=== PATIENT | female | born 1985 | race Caucasian/White ===

== ENCOUNTER 2016-11-28 18:41 | Emergency (ER) | payer OTHER ==
[~2016-11-28] VITALS: Ht 167.6 cm; Wt 100.5 kg
[2016-11-28 19:16] LABS: MCH 25.9 PG (29.0-34.0); MCHC 32.3 G/DL (30.0-36.0); MCV 80.2 FL (83-99); MEAN PLAT.VOLUME 9.8 uM^3 (9.5-12.4); PLATELET COUNT 306 K/uL (156-360); RBC DIS.WIDTH-CV 14.1 % (11.8-14.6); RBC DIS.WIDTH-SD 41.1 % (39-53); RED BLOOD COUNT 4.86 M/uL (3.80-5.20); WHITE BLOOD COUNT 5.3 K/uL (4.1-10.2)
[2016-11-28 19:28] LABS: CHLORIDE 108 mEq/L (99-109); POTASSIUM 3.3 mEq/L (3.7-5.4); SODIUM 141 mEq/L (136-147)
[2016-11-28 19:30] LABS: GLUCOSE 83 mg/dL (70-99)
[2016-11-28 19:31] LABS: ANION GAP 11 MEQ/L (2-14)
[2016-11-28 19:35] LABS: GFR ESTIMATE (CALCULATED) > 59 mL/min/; UREA NITROGEN (BUN) 15 mg/dL (9-23)
[2016-11-28 21:23] LABS: ADD MIUA? YES; BILIRUBIN NEGATIVE; BLOOD MODERATE; COLOR AMBER ((YELLOW)); GLUCOSE (STRIP) NEGATIVE; KETONES 5; LEUKOCYTES TRACE; NITRITE NEGATIVE; PROTEIN (STRIP) 100; SPECIFIC GRAVITY 1.034 (1.000-1.030); UROBILINOGEN 0.2 MG/DL (0.2-1.0)
[2016-11-28 21:31] LABS: BACTERIA NONE SEEN /HPF; EPITHELIAL CELLS 2+ /HPF; MUCUS 4+ /LPF; RED BLOOD CELLS NONE SEEN /HPF (0-5); UCUL ADDED? NO; WHITE BLOOD CELLS NONE SEEN /HPF (0-5)
[2016-11-28 21:36] LABS: INTERNAL CONTROL VALID? YES
[2016-11-28 22:45] LABS: TOTAL BILIRUBIN 0.2 mg/dL (0.0-1.0)
[2016-11-28 22:46] LABS: ALKALINE PHOSPHATASE 103 IU/L (3-129)
[2016-11-28 22:49] LABS: DIRECT BILIRUBIN 0.1 mg/dL (0.0-0.3)
[2016-11-28 22:50] LABS: LIPASE 61 U/L (1.0-51.0)
[2016-11-28] MEDS ORDERED: CIPRO500 MG PO (23:52)
[2016-11-28] MEDS ORDERED: COLACE100 MG PO (23:52)
[2016-11-29 00:27] VITALS: BP 112/69
== END 2016-11-29 00:29 | disposition home or self-care (01) ==
LOC: RME 18:41 → EME 18:41 → RME 11-29 00:29
DX: K59.00 Constipation, unspecified (principal); N39.0 Urinary tract infection, site not specified; E03.9 Hypothyroidism, unspecified; Z87.442 Personal history of urinary calculi
CPT/HCPCS: 74176; 80048; 80076; 81003; 83690; 84703; 85027; 99281; 99284; J0744; J1885; J7030

== ENCOUNTER 2017-05-12 05:22 | Day surgery (SDC) | payer OTHER ==
[~2017-05-12] VITALS: Ht 167.6 cm; Wt 100.0 kg
[~2017-05-12 05:22] MED LIST: CIPRO500 MG PO; COLACE100 MG PO; ELAVIL25 MG PO; IMITREX100 MG PO; LEVO-T50 MCG PO; XANAX0.5 MG PO
[2017-05-12 07:20] VITALS: BP 117/74
[2017-05-12] MEDS ORDERED: IBUPROFEN800 MG PO (09:02)
[2017-05-12] MEDS ORDERED: ENDOCET 5-3251 EACH PO (09:02)
[2017-05-12 11:12] VITALS: BP 109/68
[2017-05-12 12:12] VITALS: BP 117/73
[2017-05-12 14:00] VITALS: BP 103/56
== END 2017-05-12 14:00 | disposition home or self-care (01) ==
LOC: SDC 05:22
DX: N92.0 Excessive and frequent menstruation with regular cycle (principal); N94.6 Dysmenorrhea, unspecified; N80.0 Endometriosis of uterus; N83.11 Corpus luteum cyst of right ovary; N99.4 Postprocedural pelvic peritoneal adhesions; N13.5 Crossing vessel and stricture of ureter without hydronephrosis; N83.511 Torsion of right ovary and ovarian pedicle; G43.109 Migraine with aura, not intractable, without status migrainosus
CPT/HCPCS: 88307; J0330; J1100; J1170; J1580; J2405; J2710; J3010; J7050; S0030

== ENCOUNTER 2017-05-19 20:47 | Emergency (ER) | payer OTHER ==
[~2017-05-19] VITALS: Ht 170.2 cm; Wt 100.8 kg
[~2017-05-19 20:47] MED LIST changes: +ENDOCET 5-3251 EACH PO; +IBUPROFEN800 MG PO
[2017-05-19 21:19] LABS: HEMATOCRIT 38.4 % (36.0-46.0); MCH 24.9 PG (29.0-34.0); MCV 80.5 FL (83-99); MEAN PLAT.VOLUME 10.8 uM^3 (9.5-12.4); PLATELET COUNT 287 K/uL (156-360); RBC DIS.WIDTH-CV 14.8 % (11.8-14.6); RBC DIS.WIDTH-SD 43.3 % (39-53); RED BLOOD COUNT 4.77 M/uL (3.80-5.20); WHITE BLOOD COUNT 12.7 K/uL (4.1-10.2)
[2017-05-19 21:32] LABS: CHLORIDE 106 mEq/L (99-109); POTASSIUM 3.8 mEq/L (3.7-5.4); SODIUM 140 mEq/L (136-147)
[2017-05-19 21:35] LABS: GLUCOSE 123 mg/dL (70-99)
[2017-05-19 21:36] LABS: ANION GAP 11 MEQ/L (2-14); TOTAL BILIRUBIN 0.2 mg/dL (0.0-1.0)
[2017-05-19 21:38] LABS: ALKALINE PHOSPHATASE 96 IU/L (3-129); GFR ESTIMATE (CALCULATED) > 59 mL/min/
[2017-05-19 21:39] LABS: UREA NITROGEN (BUN) 14 mg/dL (9-23)
[2017-05-19 21:42] LABS: LIPASE 46 U/L (1.0-51.0)
[2017-05-19 21:48] LABS: QUANTITATIVE HCG < 4.0 MIU/ML
[2017-05-19 23:49] LABS: ADD MIUA? YES; BILIRUBIN NEGATIVE; BLOOD LARGE; COLOR YELLOW ((YELLOW)); GLUCOSE (STRIP) NEGATIVE; KETONES NEGATIVE; LEUKOCYTES LARGE; NITRITE NEGATIVE; PROTEIN (STRIP) 30; UROBILINOGEN 0.2 MG/DL (0.2-1.0)
[2017-05-19 23:58] LABS: BACTERIA NONE SEEN /HPF; EPITHELIAL CELLS 2+ /HPF; MUCUS TRACE /LPF; UCUL ADDED? YES; WHITE BLOOD CELLS 30-40 /HPF (0-5)
[2017-05-20] MEDS ORDERED: MIRALAX17 GM PO (01:28)
[2017-05-20] MEDS ORDERED: BACTRIM,SEPT1 TABLET PO (01:30)
[2017-05-20 02:13] VITALS: BP 107/75
== END 2017-05-20 02:14 | disposition home or self-care (01) ==
LOC: EME 20:47
DX: N39.0 Urinary tract infection, site not specified (principal); G89.18 Other acute postprocedural pain; R10.30 Lower abdominal pain, unspecified; N83.202 Unspecified ovarian cyst, left side; Z90.710 Acquired absence of both cervix and uterus; E03.9 Hypothyroidism, unspecified
CPT/HCPCS: 74177; 80053; 81003; 83690; 84702; 85027; 87086; 99281; 99285; J2405; J3010; J7030

== ENCOUNTER 2017-08-04 12:31 | Day surgery (SDC) | payer OTHER ==
[~2017-08-04] VITALS: Ht 167.6 cm; Wt 100.0 kg
[~2017-08-04 12:31] MED LIST changes: +BACTRIM,SEPT1 TABLET PO; +MIRALAX17 GM PO
[2017-08-04] MEDS ORDERED: KLONOPIN0.5 M1 PO (12:48)
[2017-08-04 12:51] VITALS: BP 120/79
[2017-08-04 13:10] LABS: BASOPHIL COUNT 0.1 K/uL (0-0.1); EOSINOPHIL (%) 3.4 % (0-5); EOSINOPHIL COUNT 0.3 K/uL (0-0.3); HEMATOCRIT 35.2 % (36.0-46.0); IMMATURE GRANULOCYTE (%) 0.4 % (0.0-0.7); INSTRUMENT ABS NEUTROPHIL CT 3.6 K/uL; LYMPHOCYTE COUNT 2.8 K/uL (1.0-2.8); MCHC 32.1 G/DL (30.0-36.0); MCV 81.1 FL (83-99); MEAN PLAT.VOLUME 9.4 uM^3 (9.5-12.4); MONOCYTE (%) 8.1 % (3-12); MONOCYTE COUNT 0.6 K/uL (0-0.8); NEUTROPHIL (%) 49.1 % (45-76); NEUTROPHIL COUNT 3.6 K/uL (1.8-6.4); PLATELET COUNT 279 K/uL (156-360); RBC DIS.WIDTH-CV 14.5 % (11.8-14.6); RED BLOOD COUNT 4.34 M/uL (3.80-5.20); WHITE BLOOD COUNT 7.3 K/uL (4.1-10.2)
[2017-08-04] MEDS ORDERED: IBUPROFEN800 MG PO (15:37)
[2017-08-04 16:10] VITALS: BP 113/66
[2017-08-04 16:40] VITALS: BP 131/70
== END 2017-08-04 16:49 | disposition home or self-care (01) ==
LOC: SDC 12:31
PROVIDERS: Obstetrics & Gynecology
PROC: 0UBG7ZZ Excision of Vagina, Via Natural or Artificial Opening (ICD-10-PCS; principal; 2017-08-04)
DX: N84.2 Polyp of vagina (principal); N93.9 Abnormal uterine and vaginal bleeding, unspecified; E03.9 Hypothyroidism, unspecified; F41.9 Anxiety disorder, unspecified; Z88.0 Allergy status to penicillin
CPT/HCPCS: 85025; 88305; J0131; J1100; J1170; J1885; J2250; J3010

== ENCOUNTER 2017-08-13 20:22 | Emergency (ER) | payer OTHER ==
[~2017-08-13] VITALS: Ht 167.6 cm; Wt 100.0 kg
[~2017-08-13 20:22] MED LIST changes: +KLONOPIN0.5 M1 PO
[2017-08-13] MEDS ORDERED: ULTRAM50 MG PO (21:45)
[2017-08-13] MEDS ORDERED: MOTRIN600 MG PO (21:45)
[2017-08-13 22:17] VITALS: BP 130/79
== END 2017-08-13 22:18 | disposition home or self-care (01) ==
LOC: EME 20:22
PROC: 2W3QX1Z Immobilization of Right Lower Leg using Splint (ICD-10-PCS; principal; 2017-08-13)
DX: S93.601A Unspecified sprain of right foot, initial encounter (principal); E03.9 Hypothyroidism, unspecified; Z90.710 Acquired absence of both cervix and uterus; Z88.0 Allergy status to penicillin; Z88.1 Allergy status to other antibiotic agents; Z91.041 Radiographic dye allergy status; W18.2XXA Fall in (into) shower or empty bathtub, initial encounter; Y93.E1 Activity, personal bathing and showering
CPT/HCPCS: 73630; 99281; 99284

== ENCOUNTER 2017-08-30 17:06 | Emergency (ER) | payer OTHER ==
[~2017-08-30] VITALS: Ht 167.6 cm; Wt 107.2 kg
[~2017-08-30 17:06] MED LIST changes: +MOTRIN600 MG PO; +ULTRAM50 MG PO
[2017-08-30 19:26] LABS: ADD MIUA? YES; BILIRUBIN NEGATIVE; BLOOD NEGATIVE; COLOR YELLOW ((YELLOW)); GLUCOSE (STRIP) NEGATIVE; KETONES NEGATIVE; LEUKOCYTES NEGATIVE; NITRITE NEGATIVE; PROTEIN (STRIP) NEGATIVE; SPECIFIC GRAVITY 1.023 (1.000-1.030); UROBILINOGEN 0.2 MG/DL (0.2-1.0)
[2017-08-30 19:30] LABS: BACTERIA NONE SEEN /HPF; CALCIUM OXALATE CRYSTALS 1+ /HPF; EPITHELIAL CELLS 1+ /HPF; MUCUS TRACE /LPF; RED BLOOD CELLS 0-5 /HPF (0-5); WHITE BLOOD CELLS 0-5 /HPF (0-5)
[2017-08-30] MEDS ORDERED: MOTRIN800 MG PO (20:42)
[2017-08-30] MEDS ORDERED: REGLAN10 MG PO (20:42)
[2017-08-30] MEDS ORDERED: FIORICET 50-301 EAC1 PO (20:42)
[2017-08-30 21:01] VITALS: BP 133/103
== END 2017-08-30 21:02 | disposition home or self-care (01) ==
LOC: EME 17:06
PROVIDERS: Physician Assistant
DX: G43.909 Migraine, unspecified, not intractable, without status migrainosus (principal); E03.9 Hypothyroidism, unspecified; Z90.710 Acquired absence of both cervix and uterus; Z88.1 Allergy status to other antibiotic agents; Z88.0 Allergy status to penicillin
CPT/HCPCS: 81003; 99281; 99285; J1200; J1885; J2765; J7030

== ENCOUNTER 2017-10-12 11:20 | Emergency (ER) | payer OTHER ==
[~2017-10-12] VITALS: Ht 167.6 cm; Wt 111.6 kg
[~2017-10-12 11:20] MED LIST changes: +FIORICET 50-301 EAC1 PO; +MOTRIN800 MG PO; +REGLAN10 MG PO
[2017-10-12 12:10] LABS: HEMATOCRIT 37.3 % (36.0-46.0); HEMOGLOBIN 12.3 G/DL (11.9-15.5); MCV 78.9 FL (83-99); PLATELET COUNT 369 K/uL (156-360); RBC DIS.WIDTH-CV 15.3 % (11.8-14.6); RBC DIS.WIDTH-SD 43.8 % (39-53); RED BLOOD COUNT 4.73 M/uL (3.80-5.20); WHITE BLOOD COUNT 8.2 K/uL (4.1-10.2)
[2017-10-12 12:20] LABS: ALBUMIN 4.4 g/dL (3.2-4.8)
[2017-10-12 12:21] LABS: CHLORIDE 103 mEq/L (99-109); SODIUM 135 mEq/L (136-147)
[2017-10-12 12:23] LABS: GLUCOSE 107 mg/dL (70-99); TOTAL PROTEIN 8.2 g/dL (6.4-8.3)
[2017-10-12 12:25] LABS: TOTAL BILIRUBIN 0.3 mg/dL (0.0-1.0)
[2017-10-12 12:26] LABS: ALKALINE PHOSPHATASE 138 IU/L (3-129)
[2017-10-12 12:27] LABS: CREATININE 0.9 mg/dL (0.6-1.3); GFR ESTIMATE (CALCULATED) > 59 mL/min/
[2017-10-12 12:28] LABS: AST (GOT) 34 IU/L (2-34); UREA NITROGEN (BUN) 9 mg/dL (9-23)
[2017-10-12 12:29] LABS: ALT (GPT) 56 IU/L (3-49)
[2017-10-12 12:30] LABS: LIPASE 32 U/L (1.0-51.0)
[2017-10-12] MEDS ORDERED: PERCOCET 5/31 TABLET PO (15:50)
[2017-10-12] MEDS ORDERED: CEFTIN250 MG PO (15:50)
[2017-10-12 16:05] LABS: APPEARANCE CLEAR ((CLEAR)); BILIRUBIN NEGATIVE; BLOOD MODERATE; COLOR STRAW ((YELLOW)); GLUCOSE (STRIP) NEGATIVE; KETONES NEGATIVE; LEUKOCYTES NEGATIVE; NITRITE NEGATIVE; PROTEIN (STRIP) NEGATIVE; SPECIFIC GRAVITY 1.033 (1.000-1.030); UROBILINOGEN 0.2 MG/DL (0.2-1.0)
[2017-10-12 16:15] LABS: BACTERIA NONE SEEN /HPF; EPITHELIAL CELLS RARE /HPF; MUCUS NONE SEEN /LPF; RED BLOOD CELLS 0-5 /HPF (0-5); UCUL ADDED? NO; WHITE BLOOD CELLS 0-5 /HPF (0-5)
[2017-10-12 16:18] VITALS: BP 117/77
== END 2017-10-12 16:32 | disposition home or self-care (01) ==
LOC: EME 11:20
PROVIDERS: Physician Assistant
DX: G89.18 Other acute postprocedural pain (principal); L03.90 Cellulitis, unspecified; E03.9 Hypothyroidism, unspecified; Z98.890 Other specified postprocedural states; Z90.710 Acquired absence of both cervix and uterus; Z90.49 Acquired absence of other specified parts of digestive tract; Z88.0 Allergy status to penicillin; Z88.1 Allergy status to other antibiotic agents; Z91.041 Radiographic dye allergy status
CPT/HCPCS: 74177; 80053; 81003; 83605; 83690; 85027; 87040; 99281; 99285; J0696; J1200; J2930; J3010; J7030; S0028

== ENCOUNTER 2017-10-29 12:21 | Emergency (ER) | payer OTHER ==
[~2017-10-29] VITALS: Ht 167.6 cm; Wt 110.6 kg
[~2017-10-29 12:21] MED LIST changes: +CEFTIN250 MG PO; +PERCOCET 5/31 TABLET PO
[2017-10-29 13:21] LABS: HEMATOCRIT 37.4 % (36.0-46.0); HEMOGLOBIN 12.2 G/DL (11.9-15.5); MCH 26.3 PG (29.0-34.0); MCHC 32.6 G/DL (30.0-36.0); MCV 80.6 FL (83-99); PLATELET COUNT 311 K/uL (156-360); RBC DIS.WIDTH-SD 46.9 % (39-53); RED BLOOD COUNT 4.64 M/uL (3.80-5.20); WHITE BLOOD COUNT 9.2 K/uL (4.1-10.2)
[2017-10-29 13:31] LABS: APPEARANCE CLEAR ((CLEAR)); BILIRUBIN NEGATIVE; BLOOD LARGE; COLOR YELLOW ((YELLOW)); GLUCOSE (STRIP) NEGATIVE; KETONES NEGATIVE; LEUKOCYTES NEGATIVE; NITRITE NEGATIVE; PROTEIN (STRIP) NEGATIVE; SPECIFIC GRAVITY 1.011 (1.000-1.030); UROBILINOGEN 0.2 MG/DL (0.2-1.0)
[2017-10-29 13:34] LABS: BACTERIA NONE SEEN /HPF; EPITHELIAL CELLS 1+ /HPF; MUCUS NONE SEEN /LPF; RED BLOOD CELLS TNTC /HPF (0-5); UCUL ADDED? YES; WHITE BLOOD CELLS 0-5 /HPF (0-5)
[2017-10-29 13:51] LABS: CHLORIDE 104 MEQ/L (99-109); POTASSIUM 3.7 MEQ/L (3.7-5.4); SODIUM 138 MEQ/L (136-147); TOTAL BILIRUBIN 0.3 MG/DL (0.0-1.0)
[2017-10-29 13:55] LABS: QUANTITATIVE HCG < 4.0 MIU/ML
[2017-10-29 13:56] LABS: ALKALINE PHOSPHATASE 124 IU/L (3-129); ALT (GPT) 24 IU/L (3-49); AST (GOT) 24 IU/L (2-34); CREATININE 0.7 MG/DL (0.6-1.3); GFR ESTIMATE (CALCULATED) > 59 mL/min/; GLUCOSE 92 mg/dL (70-99); TOTAL PROTEIN 7.6 G/DL (6.4-8.3); UREA NITROGEN (BUN) 7 mg/dL (9-23)
[2017-10-29] MEDS ORDERED: PERCOCET 5/31 TABLET PO (16:32)
[2017-10-29] MEDS ORDERED: ZOFRAN ODT8 MG PO (16:32)
[2017-10-29 16:50] VITALS: BP 134/81
== END 2017-10-29 16:54 | disposition home or self-care (01) ==
LOC: EME 12:21
DX: R10.9 Unspecified abdominal pain (principal); R31.9 Hematuria, unspecified; R11.2 Nausea with vomiting, unspecified; G43.909 Migraine, unspecified, not intractable, without status migrainosus; E03.9 Hypothyroidism, unspecified; Z88.1 Allergy status to other antibiotic agents; Z88.0 Allergy status to penicillin; Z91.041 Radiographic dye allergy status
CPT/HCPCS: 74176; 80053; 81003; 84702; 85027; 87086; 99281; 99284; J1885; J2270; J2405

== ENCOUNTER 2017-11-10 19:13 | Emergency (ER) | payer OTHER ==
[~2017-11-10] VITALS: Ht 167.6 cm; Wt 109.1 kg
[~2017-11-10 19:13] MED LIST changes: +ZOFRAN ODT8 MG PO
[2017-11-10 20:04] LABS: HEMATOCRIT 37.4 % (36.0-46.0); HEMOGLOBIN 12.2 G/DL (11.9-15.5); MCH 26.6 PG (29.0-34.0); MCHC 32.6 G/DL (30.0-36.0); MCV 81.5 FL (83-99); PLATELET COUNT 296 K/uL (156-360); RBC DIS.WIDTH-CV 16.2 % (11.8-14.6); RBC DIS.WIDTH-SD 47.8 % (39-53); RED BLOOD COUNT 4.59 M/uL (3.80-5.20)
[2017-11-10 22:31] LABS: CHLORIDE 106 mEq/L (99-109); POTASSIUM 3.6 mEq/L (3.7-5.4); SODIUM 137 mEq/L (136-147)
[2017-11-10 22:34] LABS: GLUCOSE 89 mg/dL (70-99); TOTAL PROTEIN 7.8 g/dL (6.4-8.3)
[2017-11-10 22:35] LABS: TOTAL BILIRUBIN 0.2 mg/dL (0.0-1.0)
[2017-11-10 22:37] LABS: ALKALINE PHOSPHATASE 133 IU/L (3-129); CREATININE 0.8 mg/dL (0.6-1.3); GFR ESTIMATE (CALCULATED) > 59 mL/min/
[2017-11-10 22:38] LABS: UREA NITROGEN (BUN) 14 mg/dL (9-23)
[2017-11-10 22:39] LABS: AST (GOT) 24 IU/L (2-34)
[2017-11-10 22:40] LABS: ALT (GPT) 24 IU/L (3-49)
[2017-11-10 22:40] LABS: APPEARANCE CLEAR ((CLEAR)); BILIRUBIN NEGATIVE; BLOOD LARGE; COLOR YELLOW ((YELLOW)); GLUCOSE (STRIP) NEGATIVE; KETONES NEGATIVE; LEUKOCYTES NEGATIVE; NITRITE NEGATIVE; PROTEIN (STRIP) NEGATIVE; SPECIFIC GRAVITY 1.019 (1.000-1.030); UROBILINOGEN 0.2 MG/DL (0.2-1.0)
[2017-11-10 22:41] LABS: LIPASE 33 U/L (1.0-51.0)
[2017-11-10 22:44] LABS: BACTERIA RARE /HPF; EPITHELIAL CELLS 1+ /HPF; MUCUS TRACE /LPF; UCUL ADDED? NO; WHITE BLOOD CELLS NONE SEEN /HPF (0-5)
[2017-11-10 22:50] LABS: QUANTITATIVE HCG < 4.0 MIU/ML
[2017-11-10] MEDS ORDERED: PERCOCET 5/31 TABLET PO (23:31)
[2017-11-10] MEDS ORDERED: MIRALAX17 GM PO (23:31)
[2017-11-10] MEDS ORDERED: REGLAN5 MG PO (23:38)
[2017-11-11 00:13] VITALS: BP 105/87
== END 2017-11-11 00:14 | disposition home or self-care (01) ==
LOC: EME 19:13
DX: K59.00 Constipation, unspecified (principal); R10.11 Right upper quadrant pain; Z90.49 Acquired absence of other specified parts of digestive tract; Z98.890 Other specified postprocedural states; Z88.1 Allergy status to other antibiotic agents; Z88.0 Allergy status to penicillin
CPT/HCPCS: 74176; 80053; 81003; 83690; 84702; 85027; 99281; 99285; J2270; J2405; J7030

== ENCOUNTER 2017-11-22 03:29 | Emergency (ER) | payer OTHER ==
[~2017-11-22] VITALS: Ht 167.6 cm; Wt 113.3 kg
[~2017-11-22 03:29] MED LIST changes: +REGLAN5 MG PO
[2017-11-22 04:58] LABS: HEMATOCRIT 35.8 % (36.0-46.0); HEMOGLOBIN 11.6 G/DL (11.9-15.5); MCH 26.5 PG (29.0-34.0); MCHC 32.4 G/DL (30.0-36.0); MCV 81.9 FL (83-99); PLATELET COUNT 309 K/uL (156-360); RBC DIS.WIDTH-CV 15.7 % (11.8-14.6); RBC DIS.WIDTH-SD 47.2 % (39-53); RED BLOOD COUNT 4.37 M/uL (3.80-5.20); WHITE BLOOD COUNT 7.6 K/uL (4.1-10.2)
[2017-11-22 05:21] LABS: ALBUMIN 4.1 g/dL (3.2-4.8)
[2017-11-22 05:22] LABS: CHLORIDE 106 mEq/L (99-109); SODIUM 138 mEq/L (136-147)
[2017-11-22 05:24] LABS: GLUCOSE 90 mg/dL (70-99); TOTAL PROTEIN 8.1 g/dL (6.4-8.3)
[2017-11-22 05:26] LABS: TOTAL BILIRUBIN 0.3 mg/dL (0.0-1.0)
[2017-11-22 05:27] LABS: ALKALINE PHOSPHATASE 131 IU/L (3-129)
[2017-11-22 05:28] LABS: CREATININE 0.8 mg/dL (0.6-1.3); GFR ESTIMATE (CALCULATED) > 59 mL/min/
[2017-11-22 05:29] LABS: AST (GOT) 17 IU/L (2-34); UREA NITROGEN (BUN) 16 mg/dL (9-23)
[2017-11-22 05:31] LABS: ALT (GPT) 16 IU/L (3-49)
[2017-11-22 05:37] LABS: QUANTITATIVE HCG < 4.0 MIU/ML
[2017-11-22 06:07] LABS: LIPASE 47 U/L (1.0-51.0)
[2017-11-22] MEDS ORDERED: ZOFRAN4 MG PO (06:46)
[2017-11-22] MEDS ORDERED: PERCOCET 5/31 TABLET PO (06:46)
[2017-11-22 07:13] VITALS: BP 118/82
== END 2017-11-22 07:15 | disposition home or self-care (01) ==
LOC: EME 03:29
DX: G89.18 Other acute postprocedural pain (principal); G89.29 Other chronic pain; R10.11 Right upper quadrant pain; Z90.49 Acquired absence of other specified parts of digestive tract; Z98.890 Other specified postprocedural states; Z90.710 Acquired absence of both cervix and uterus; Z88.0 Allergy status to penicillin; Z88.1 Allergy status to other antibiotic agents
CPT/HCPCS: 80053; 81003; 83690; 84702; 85027; 99281; 99285; J2270; J2405; J3010; J7030

== ENCOUNTER 2017-11-28 13:59 | Emergency (ER) | payer OTHER ==
[~2017-11-28] VITALS: Ht 167.6 cm; Wt 112.8 kg
[~2017-11-28 13:59] MED LIST changes: +ZOFRAN4 MG PO
[2017-11-28 15:07] LABS: HEMATOCRIT 40.4 % (36.0-46.0); HEMOGLOBIN 13.1 G/DL (11.9-15.5); MCH 26.4 PG (29.0-34.0); MCHC 32.4 G/DL (30.0-36.0); MCV 81.5 FL (83-99); PLATELET COUNT 328 K/uL (156-360); RBC DIS.WIDTH-CV 15.7 % (11.8-14.6); RBC DIS.WIDTH-SD 46.5 % (39-53); RED BLOOD COUNT 4.96 M/uL (3.80-5.20); WHITE BLOOD COUNT 10.1 K/uL (4.1-10.2)
[2017-11-28 15:18] LABS: ALBUMIN 4.5 g/dL (3.2-4.8)
[2017-11-28 15:19] LABS: CHLORIDE 103 mEq/L (99-109); POTASSIUM 3.8 mEq/L (3.7-5.4); SODIUM 136 mEq/L (136-147)
[2017-11-28 15:21] LABS: GLUCOSE 87 mg/dL (70-99); TOTAL PROTEIN 8.6 g/dL (6.4-8.3)
[2017-11-28 15:23] LABS: TOTAL BILIRUBIN 0.3 mg/dL (0.0-1.0)
[2017-11-28 15:24] LABS: ALKALINE PHOSPHATASE 133 IU/L (3-129)
[2017-11-28 15:25] LABS: CREATININE 0.9 mg/dL (0.6-1.3); GFR ESTIMATE (CALCULATED) > 59 mL/min/
[2017-11-28 15:26] LABS: AST (GOT) 22 IU/L (2-34); DIRECT BILIRUBIN 0.1 mg/dL (0.0-0.3); UREA NITROGEN (BUN) 16 mg/dL (9-23)
[2017-11-28 15:28] LABS: ALT (GPT) 26 IU/L (3-49); LIPASE 33 U/L (1.0-51.0)
[2017-11-28 15:34] LABS: QUANTITATIVE HCG < 4.0 MIU/ML
[2017-11-28 17:31] LABS: APPEARANCE SL.HAZY ((CLEAR)); BILIRUBIN NEGATIVE; BLOOD LARGE; COLOR YELLOW ((YELLOW)); GLUCOSE (STRIP) NEGATIVE; KETONES NEGATIVE; LEUKOCYTES NEGATIVE; NITRITE NEGATIVE; PROTEIN (STRIP) NEGATIVE; SPECIFIC GRAVITY 1.018 (1.000-1.030); UROBILINOGEN 0.2 MG/DL (0.2-1.0)
[2017-11-28 17:48] LABS: BACTERIA RARE /HPF; EPITHELIAL CELLS 1+ /HPF; HYALINE CASTS 0-5 /LPF; MUCUS TRACE /LPF; UCUL ADDED? NO; WHITE BLOOD CELLS 0-5 /HPF (0-5)
[2017-11-28] MEDS ORDERED: MACROBID100 MG PO (18:17)
[2017-11-28] MEDS ORDERED: NORCO 10/3251 TABLET PO (18:17)
[2017-11-28 18:35] VITALS: BP 132/95
== END 2017-11-28 18:42 | disposition home or self-care (01) ==
LOC: EME 13:59
DX: N39.0 Urinary tract infection, site not specified (principal); G89.29 Other chronic pain; R10.9 Unspecified abdominal pain; Z90.49 Acquired absence of other specified parts of digestive tract; F41.9 Anxiety disorder, unspecified; Z88.0 Allergy status to penicillin; Z88.1 Allergy status to other antibiotic agents
CPT/HCPCS: 80048; 80076; 81003; 83690; 84702; 85027; 99281; 99285; J2060; J2270; J2405; J7030

== ENCOUNTER 2017-12-19 16:12 | Emergency (ER) | payer OTHER ==
[~2017-12-19] VITALS: Ht 167.6 cm; Wt 113.6 kg
[~2017-12-19 16:12] MED LIST changes: +MACROBID100 MG PO; +NORCO 10/3251 TABLET PO
[2017-12-19 17:10] LABS: HEMATOCRIT 37.3 % (36.0-46.0); HEMOGLOBIN 12.3 G/DL (11.9-15.5); MCH 26.4 PG (29.0-34.0); PLATELET COUNT 375 K/uL (156-360); RBC DIS.WIDTH-SD 43.5 % (39-53); RED BLOOD COUNT 4.66 M/uL (3.80-5.20); WHITE BLOOD COUNT 7.7 K/uL (4.1-10.2)
[2017-12-19 17:20] LABS: ALBUMIN 4.2 g/dL (3.2-4.8); CHLORIDE 108 mEq/L (99-109); POTASSIUM 3.9 mEq/L (3.7-5.4); SODIUM 141 mEq/L (136-147)
[2017-12-19 17:23] LABS: GLUCOSE 92 mg/dL (70-99); TOTAL PROTEIN 7.7 g/dL (6.4-8.3)
[2017-12-19 17:25] LABS: TOTAL BILIRUBIN 0.1 mg/dL (0.0-1.0)
[2017-12-19 17:26] LABS: ALKALINE PHOSPHATASE 134 IU/L (3-129); CREATININE 0.8 mg/dL (0.6-1.3); GFR ESTIMATE (CALCULATED) > 59 mL/min/
[2017-12-19 17:27] LABS: UREA NITROGEN (BUN) 7 mg/dL (9-23)
[2017-12-19 17:28] LABS: AST (GOT) 28 IU/L (2-34)
[2017-12-19 17:29] LABS: ALT (GPT) 29 IU/L (3-49)
[2017-12-19 17:35] LABS: QUANTITATIVE HCG < 4.0 MIU/ML
[2017-12-19 21:59] LABS: APPEARANCE SL.HAZY ((CLEAR)); BILIRUBIN NEGATIVE; BLOOD NEGATIVE; COLOR YELLOW ((YELLOW)); GLUCOSE (STRIP) NEGATIVE; KETONES NEGATIVE; LEUKOCYTES NEGATIVE; NITRITE NEGATIVE; PROTEIN (STRIP) NEGATIVE; SPECIFIC GRAVITY 1.018 (1.000-1.030); UROBILINOGEN 0.2 MG/DL (0.2-1.0)
[2017-12-19] MEDS ORDERED: BENTYL20 MG PO (22:00)
[2017-12-19 22:06] LABS: BACTERIA RARE /HPF; EPITHELIAL CELLS 2+ /HPF; MUCUS 3+ /LPF; RED BLOOD CELLS 0-5 /HPF (0-5); UCUL ADDED? NO; WHITE BLOOD CELLS 0-5 /HPF (0-5)
[2017-12-19 22:15] VITALS: BP 113/87
== END 2017-12-19 22:16 | disposition home or self-care (01) ==
LOC: EME 16:12
DX: K59.00 Constipation, unspecified (principal); R10.84 Generalized abdominal pain; Z90.710 Acquired absence of both cervix and uterus; Z90.49 Acquired absence of other specified parts of digestive tract; Z88.1 Allergy status to other antibiotic agents; Z88.0 Allergy status to penicillin; F41.9 Anxiety disorder, unspecified
CPT/HCPCS: 74018; 80053; 81003; 84702; 85027; 99281; 99283; J1885